=== PATIENT | male | born 1935 | race Caucasian/White ===

== ENCOUNTER 2021-06-28 06:00 | Outpatient (RCR) | payer MEDICARE, SELFPAY | END 2021-07-19 23:59 | disposition home or self-care (01) | LOC: MOT 06:00 | PROVIDERS: Referring Provider Nurse Practitioner Family; Visit Provider Nurse Practitioner Family | DX: I89.0 Lymphedema, not elsewhere classified (principal) | CPT/HCPCS: 97140; 97166 ==

== ENCOUNTER 2021-07-20 06:00 | Outpatient (RCR) | payer MEDICARE, SELFPAY | END 2021-08-18 23:59 | disposition home or self-care (01) | LOC: MOT 06:00 | PROVIDERS: Referring Provider Nurse Practitioner Family; Visit Provider Nurse Practitioner Family | DX: I89.0 Lymphedema, not elsewhere classified (principal) | CPT/HCPCS: 97140 ==

== ENCOUNTER → 2022-11-30 15:55 | Outpatient (BNVA) | payer MEDICARE, SELFPAY | PROVIDERS: Referring Provider Nurse Practitioner Family; Visit Provider Internal Medicine Cardiovascular Disease | DX: I71.40 Abdominal aortic aneurysm, without rupture, unspecified (principal); I48.91 Unspecified atrial fibrillation; G47.33 Obstructive sleep apnea (adult) (pediatric); I25.10 Atherosclerotic heart disease of native coronary artery without angina pectoris; E78.5 Hyperlipidemia, unspecified; J96.10 Chronic respiratory failure, unspecified whether with hypoxia or hypercapnia; I10 Essential (primary) hypertension; I45.9 Conduction disorder, unspecified | CPT/HCPCS: 93005; 99205 ==

== ENCOUNTER → 2022-12-14 10:48 | Outpatient (BNVA) | payer MEDICARE, SELFPAY | PROVIDERS: Visit Provider Podiatrist Foot & Ankle Surgery | DX: B35.1 Tinea unguium (principal); I73.9 Peripheral vascular disease, unspecified; I89.0 Lymphedema, not elsewhere classified | CPT/HCPCS: 11721; 99203 ==

== ENCOUNTER → 2023-02-22 13:08 | Outpatient (BNVA) | payer MEDICARE, SELFPAY | PROVIDERS: Visit Provider Nurse Practitioner Family | DX: I48.21 Permanent atrial fibrillation (principal); Z79.01 Long term (current) use of anticoagulants; I10 Essential (primary) hypertension; I25.10 Atherosclerotic heart disease of native coronary artery without angina pectoris | CPT/HCPCS: 99214 ==

== ENCOUNTER → 2023-04-09 10:47 | Outpatient (BNVA) | payer MEDICARE, SELFPAY | PROVIDERS: PCP Nurse Practitioner Family; Visit Provider Podiatrist Foot & Ankle Surgery | DX: B35.1 Tinea unguium (principal); I73.9 Peripheral vascular disease, unspecified; I89.0 Lymphedema, not elsewhere classified | CPT/HCPCS: 11721 ==

== ENCOUNTER → 2023-07-12 11:02 | Outpatient (BNVA) | payer MEDICARE, SELFPAY | PROVIDERS: PCP Nurse Practitioner Family; Visit Provider Podiatrist Foot & Ankle Surgery | DX: B35.1 Tinea unguium (principal); I73.9 Peripheral vascular disease, unspecified; I89.0 Lymphedema, not elsewhere classified | CPT/HCPCS: 11721 ==

== ENCOUNTER 2023-08-21 06:00 | Outpatient (CLI) | payer MEDICARE, SELFPAY | END 2023-08-21 06:01 | disposition home or self-care (01) | LOC: RAD 10-28 07:40 | PROVIDERS: PCP Nurse Practitioner Family; Visit Provider Internal Medicine Cardiovascular Disease | DX: R06.02 Shortness of breath (principal); I71.40 Abdominal aortic aneurysm, without rupture, unspecified; I48.21 Permanent atrial fibrillation; I10 Essential (primary) hypertension; E78.2 Mixed hyperlipidemia; I25.10 Atherosclerotic heart disease of native coronary artery without angina pectoris; I73.9 Peripheral vascular disease, unspecified; Z87.891 Personal history of nicotine dependence; Z79.01 Long term (current) use of anticoagulants | CPT/HCPCS: 80048; 83880; 99214 ==

== ENCOUNTER 2023-09-20 09:16 | Outpatient (CLI) | payer MEDICARE, SELFPAY ==
--- NOTE | 2023-09-20 09:30 | USCV_ITS ---
Kilo June Age: 87 Gender: M : 1935 Exam Date: 09/20/2023 09:28 Ordering Phys: Smitha Wooten MD ([email or web address]) Technologist: BM Exam Location: [facility] [place] Indication: AAA HISTORY: Diameter (cm) AP x Transverse x Length Velocity (cm/s) Waveform Prox Aorta: 1.90 x 2.10 x 43.90 Mid Aorta: x x Distal Aorta: 2.70 x 2.50 x 30.00 Right Iliac Prox: 0.91 x 1.06 x 150.50 Left Iliac Prox: 0.99 x 1.11 x 127.30 Stent Prox Landing x x Aneurysmal Sac Max x x Lt Lat Sac Dim Rt Lat Sac Dim Stent Dist Landing x x Right Iliac Stent x x Left Iliac Stent x x Right Renal Art Left Renal Art FINDINGS: Extremely tds due to patient habitus. CONCLUSIONS No evidence of abdominal aortic or bilateral iliac aneurysm. 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 Segundo Medina MD (Electronically Signed) Final Date: 21 September 2023 10:27 S
== END 2023-09-20 09:17 | disposition home or self-care (01) ==
LOC: RAD 09:17
PROVIDERS: PCP Nurse Practitioner Family; Visit Provider Internal Medicine Cardiovascular Disease
DX: I71.43 Infrarenal abdominal aortic aneurysm, without rupture (principal); R06.09 Other forms of dyspnea; I73.9 Peripheral vascular disease, unspecified; B35.1 Tinea unguium; I89.0 Lymphedema, not elsewhere classified
CPT/HCPCS: 11721; 93306; 93978

== ENCOUNTER → 2023-11-22 10:30 | Outpatient (BNVA) | payer MEDICARE, SELFPAY | PROVIDERS: PCP Nurse Practitioner Family; Visit Provider Podiatrist Foot & Ankle Surgery | DX: B35.1 Tinea unguium (principal); I73.9 Peripheral vascular disease, unspecified; I89.0 Lymphedema, not elsewhere classified | CPT/HCPCS: 11721 ==